=== PATIENT | female | born 1945 | race Caucasian/White ===

== ENCOUNTER 2022-11-16 10:31 | Outpatient (CLI) | payer MEDICARE ==
[~2022-11-16 10:31] MED LIST: ACET-1008 PO; ALBU18HF2 IH; BETIMOL OP; BIMA2.5D4; CALC-499; CEPALOZ MM; CYCL-394 PO; CYCL1DRO6 OP; FMLOS OP; GABA-338 PO; MULT-968 PO; OLME1TAB19 PO; OMEG1CAP21 PO; PREVCR VG; PROP10DR4 OP; SUCR1ORA12 PO; VIT1TABL66 PO; [UNRECOGNIZED DRUG - CODE] OP; [UNRECOGNIZED DRUG - OTHER] OP
== END 2022-11-16 23:59 | disposition home or self-care (01) ==
LOC: CARD DIAG 10:31
PROVIDERS: ATTEND Internal Medicine Cardiovascular Disease
DX: I08.8 Other rheumatic multiple valve diseases (principal); R06.02 Shortness of breath; I10 Essential (primary) hypertension
CPT/HCPCS: 93306